=== PATIENT | female | born 1990 | race Caucasian/White ===

== ENCOUNTER 2024-02-28 18:16 | Emergency (ER) | payer OTHER, SELFPAY ==
[2024-02-28 18:18] VITALS: BP 146/98
--- NOTE | 2024-02-28 18:22 | ED.GENMED ---
ED Provider Triage
<Jayant Li PA-C - Last Filed: 02/28/24 18:24>
-
Patient seen by provider in Triage?: Seen in Triage
34-year-old female presents with onset of fever today. 4 days ago she had vaginal delivery at [facility]. She had some hemorrhage after the delivery. She notes lower abdominal pain and a foul smell but she also notes the onset of a
cough. Temperature at home was 101.2. She took Tylenol. This is her second child. She delivered at 37 weeks.
She is coughing throughout the exam. She is tearful. Heart rate 115 but not hypoxic. Blood pressure stable. Fever could be from viral illness such as COVID flu or RSV. She is very concerned about RSV. These tests were ordered. X-ray ordered
of the chest as well. Family also concerned about potential endometritis from recent delivery and foul smell. Ultrasound pelvis pending as well
Patient seen by provider at triage but warrants further assessment
History of Present Illness
<REYNALDO Villalobos Last Filed: 02/28/24 18:24>
General
Chief Complaint: Fever
Time Seen by Provider: 02/28/24 22:01
<Rogelio Curry Jr., PA-C - Last Filed: 02/28/24 23:52>
General
Source: patient and spouse
Exam Limitations: none
Nursing documentation reviewed up to this point in time: agreed with
History of Present Illness
History of Present Illness:
34-year-old female presenting to the emergency department today with concerns of fever starting today cough starting yesterday also some nasal congestion worsening throughout the day today. Had vaginal delivery 4 days ago had some
hemorrhage which is since improved. Delivery was at [facility]. Denies any chest pain shortness of breath.
Review of Systems
<Rogelio Curry Jr., PA-C - Last Filed: 02/28/24 23:52>
Review of Systems
Allergies reviewed?: Yes
All Other Systems: ROS reviewed and negative except as documented in HPI and ROS
Phy Exam
<Rogelio Curry Jr., PA-C - Last Filed: 02/28/24 23:52>
Physical Exam
Physical Exam:
GENERAL: Alert , in no apparent distress
EYE: pupils equal and reactive
NECK: Supple, no significant adenopathy.
ENT: Swollen boggy nasal turbinates, o/p clr, mmm.
CARDIAC: Regular rate and rhythm .
LUNGS: Coughing clear breath sounds bilaterally, no acute respiratory distress, no wheezes/rales/rhonchi
ABDOMEN: Soft, without focal tenderness, no r/g, no cvat
NEUROLOGICAL: Alert and oriented, no focal neuro deficits
SKIN: Warm and dry, skin intact.
MUSCULOSKELETAL: No edema, well perfused.
PSYCH: Normal and appropriate interaction.
Course
<Jayant Li PA-C - Last Filed: 02/28/24 18:24>
Orders/Labs/Results
Orders:
Orders
02/28/24 18:21
US Pelvis Only (non-obstetric) Urgent
Reason For Exam: fever, lower abdominal pain
02/28/24 18:39
COVID-19 Antigen Urgent
Source: Nasal Swab
Complete Blood Count/With Diff Urgent
Comprehensive Metabolic Panel Urgent
Influenza A+B Rapid Molecular Urgent
DANIEL Source: Nasal Swab
Specimen Description:
02/28/24 18:48
Respiratory Syncytial Virus Urgent
DANIEL Source: Nasal Swab
Specimen Description:
Date Specimen was Collected: 02/28/24
Time Specimen was Collected: 18:44
02/28/24 21:20
Acetaminophen [Tylenol] 1,000 mg .ROUTE .[facility]
02/28/24 22:21
Acetaminophen [Tylenol] 1,000 mg PO NOW STA
Abnormal Lab Results
02/28/24
18:39
RBC 3.28 L 10^6/uL
(4.20-5.40)
Hgb 9.5 L g/dL
(12.0-16.0)
Hct 28.8 L %
(37.0-47.0)
Abs Immat Gran (auto) 0.1 H 10^3/uL
(0-0.05)
Absolute Neuts (auto) 7.1 H 10^3/uL
(1.4-6.5)
Absolute Lymphs (auto) 0.7 L 10^3/uL
(1.2-3.4)
Immature Gran % 1.2 H %
(0-0.5)
Neutrophils % 79.9 H %
(42.2-75.2)
Lymphocytes % 7.6 L %
(20.5-51.1)
Sodium 134 L mmol/L
(135-145)
Glucose 101 H mg/dl
(70-99)
Total Bilirubin 0.1 L mg/dl
(0.2-1.3)
ALT 36 H U/L
(0-35)
Total Protein 6.1 L g/dl
(6.3-8.2)
02/28/24 18:39
02/28/24 18:39
Vital Signs
Initial and Last Documented VS:
Initial Vital Signs
Temp Pulse Resp BP Pulse Ox
99.4 F 110 18 146/98 97
02/28/24 18:18 02/28/24 18:18 02/28/24 18:18 02/28/24 18:18 02/28/24 18:18
Last Documented Vital Signs
Temp Pulse Resp BP Pulse Ox
102.1 F H 110 18 146/98 97
02/28/24 21:17 02/28/24 18:18 02/28/24 18:18 02/28/24 18:18 02/28/24 18:18
<Rogelio Curry Jr., PA-C - Last Filed: 02/28/24 23:52>
Orders/Labs/Results
Orders:
Orders
02/28/24 18:21
US Pelvis Only (non-obstetric) Urgent
Reason For Exam: fever, lower abdominal pain
02/28/24 18:39
COVID-19 Antigen Urgent
Source: Nasal Swab
Complete Blood Count/With Diff Urgent
Comprehensive Metabolic Panel Urgent
Influenza A+B Rapid Molecular Urgent
DANIEL Source: Nasal Swab
Specimen Description:
02/28/24 18:48
Respiratory Syncytial Virus Urgent
DANIEL Source: Nasal Swab
Specimen Description:
Date Specimen was Collected: 02/28/24
Time Specimen was Collected: 18:44
02/28/24 21:20
Acetaminophen [Tylenol] 1,000 mg .ROUTE .[facility]
02/28/24 22:21
Acetaminophen [Tylenol] 1,000 mg PO NOW STA
Abnormal Lab Results
02/28/24
18:39
RBC 3.28 L 10^6/uL
(4.20-5.40)
Hgb 9.5 L g/dL
(12.0-16.0)
Hct 28.8 L %
(37.0-47.0)
Abs Immat Gran (auto) 0.1 H 10^3/uL
(0-0.05)
Absolute Neuts (auto) 7.1 H 10^3/uL
(1.4-6.5)
Absolute Lymphs (auto) 0.7 L 10^3/uL
(1.2-3.4)
Immature Gran % 1.2 H %
(0-0.5)
Neutrophils % 79.9 H %
(42.2-75.2)
Lymphocytes % 7.6 L %
(20.5-51.1)
Sodium 134 L mmol/L
(135-145)
Glucose 101 H mg/dl
(70-99)
Total Bilirubin 0.1 L mg/dl
(0.2-1.3)
ALT 36 H U/L
(0-35)
Total Protein 6.1 L g/dl
(6.3-8.2)
02/28/24 18:39
02/28/24 18:39
Vital Signs
Initial and Last Documented VS:
Initial Vital Signs
Temp Pulse Resp BP Pulse Ox
99.4 F 110 18 146/98 97
02/28/24 18:18 02/28/24 18:18 02/28/24 18:18 02/28/24 18:18 02/28/24 18:18
Last Documented Vital Signs
Temp Pulse Resp BP Pulse Ox
102.1 F H 110 18 146/98 97
02/28/24 21:17 02/28/24 18:18 02/28/24 18:18 02/28/24 18:18 02/28/24 18:18
<Rogelio Curry Jr., PA-C - Last Filed: 02/28/24 23:52>
MDM/Problems Addressed
MDM/Problems Addressed:
34-year-old female presenting to the emergency department today with concerns of fever. Mild upper respiratory symptoms started yesterday. Here respiratory symptoms sniffily worsening throughout ER stay. Patient generally well-appearing
otherwise. Does have swollen boggy nasal turbinates hacking cough. Fevers likely related to viral syndrome. She denies worsening vaginal bleeding or pelvic pain. Endometritis very unlikely ultrasound does not show emergent findings. Case
discussed with patient's team coordinator that I will have her follow-up closely but otherwise stable for outpatient management. Return precautions given.
<Rogelio Curry Jr., PA-C - Last Filed: 02/28/24 23:52>
*Critical Care Note
Total Time (30-74mins, 75-104mins- exclusive of procedures): Not Applicable
ED Attending Note
<Jayant Li PA-C - Last Filed: 02/28/24 18:24>
-
Portions of this chart may have been created with voice recognition software.� Occasional wrong word or��sound alike� substitutions may have occurred due to the inherent limitations of voice recognition software.
Discharge Plan
Departure
Patient Disposition: Home (Routine Discharge)
Date of Disposition: 02/28/24
Time of Disposition: 23:33
Patient with high blood pressure during this ER visit?: No
Condition: Good
Covid-19: Not Applicable
Discharge Problem:
Acute viral syndrome
Instructions: Viral Syndrome (DC)
Referrals:
Randy rTent MD [Family Provider] -
Randy Trent MD [Primary Care Provider] -
Activity Restrictions/Additional Instructions:
You came to the emergency department today with concerns of a fever. Here this is likely consistent with a viral syndrome. Please follow closely with your team coordinator. Return to the emergency department for any worsening, new or concerning
symptoms.
Interventions
Interventions:
*Risk Screen - Suicide Last Done: 02/28/24 18:18
*General Assessment Last Done: 02/28/24 18:18
*ED COVID-19 Vaccine History Last Done: 02/28/24 18:18
*Nursing Disposition Last Done: 02/28/24 23:39
ED- Neurological Assessment Last Done: 02/28/24 22:16
ED-Skin Assessment Last Done: 02/28/24 22:16
Discharge Date and Time
Discharge Date/Time: 02/28/24 23:39
Print Language: PERSIAN
[2024-02-28 19:01] LABS: % Basophils 0.7 % (0-2); % Eosinophils 3.7 % (0-6); % Immature Granulocytes 1.2 % (0-0.5); % Lymphocytes 7.6 % (20.5-51.1); % Monocytes 6.9 % (1.7-9.3); % Neutrophils 79.9 % (42.2-75.2); Absolute Basophils 0.1 10^3/uL (0-0.2); Absolute Eosinophils 0.3 10^3/uL (0-0.7); Absolute Immature Granulocytes 0.1 10^3/uL (0-0.05); Absolute Lymphocytes 0.7 10^3/uL (1.2-3.4); Absolute Monocytes 0.6 10^3/uL (0.1-0.6); Absolute Neutrophils 7.1 10^3/uL (1.4-6.5); Hematocrit 28.8 % (37.0-47.0); Hemoglobin 9.5 g/dL (12.0-16.0); Mean Corpuscular Volume 87.8 fL (81.0-99.0); Mean Platelet Volume 9.2 fL (7.4-10.4); Nucleated Red Blood Cells % 0 %; Platelet Count 280 10^3/uL (130-400); Red Blood Cell Count 3.28 10^6/uL (4.20-5.40); Red Cell Dist. Width 13.6 % (11.5-14.5); White Blood Cell Count 8.9 10^3/uL (4.8-10.8)
[2024-02-28 19:17] LABS: ALT (SGPT) 36 U/L (0-35); AST (SGOT) 32 U/L (14-36); Albumin 3.6 g/dl (3.5-5.0); Alkaline Phosphatase 104 U/L (38-126); Blood Urea Nitrogen 8 mg/dl (7-17); Calcium 8.8 mg/dl (8.4-10.2); Carbon Dioxide 25 mmol/L (22-30); Chloride 101 mmol/L (98-107); Glucose 101 mg/dl (70-99); Potassium 3.8 mmol/L (3.5-5.1); Sodium 134 mmol/L (135-145); Total Bilirubin 0.1 mg/dl (0.2-1.3); Total Protein 6.1 g/dl (6.3-8.2); eGFR > 60.00
[2024-02-28 19:27] LABS: COVID-19 Antigen Negative (Negative)
[2024-02-28] MEDS: TYLENOL 1000 MG PO (22:22)
== END 2024-02-28 23:39 | disposition home or self-care (01) ==
LOC: EMR 18:16
PROVIDERS: Physician Assistant; EMERGENCY PHYSICIAN Student in an Organized Health Care Education/Training Program; FAMILY PHYSICIAN Internal Medicine; PRIMARYCARE PHYSICIAN Orthopaedic Surgery
DX: B34.9 Viral infection, unspecified (principal)
CPT/HCPCS: 99284; 76856; 80053; 85025; 87502; 87807; 87811